=== PATIENT | male | born 1945 | race Hispanic/Latino ===

== ENCOUNTER 2016-05-14 08:26 | Inpatient (IN) | payer MEDICARE ==
--- NOTE | 2016-05-01 13:00 | NUR ---
JOINT CAMP: Patient attended Joint Camp at [facility]. Patient will be coming in for a right knee replacement. Patient comes from home and has three stairs to enter the home and none inside. Patient's Antonieta will be the one to help post discharge and she will be transporting patient home. [place], has never had home health or SNF or outpatient therapy. Patient has bath bench,elevated toilet and walker.
[2016-05-14] VITALS (13 sets, daily range): BP systolic 103–162; BP diastolic 64–94; PULSE 60–85; RESP 12–17; O2SAT 93–100
[~2016-05-14] VITALS: Ht 172.7 cm; Wt 87.4 kg
--- NOTE | 2016-05-14 06:39 | PCM.HPANE ---
Patient Data Surgeon Admitting Provider: Attending Provider:Obed Ba MD Primary Care Physician:Ivan Eugene MD Other Provider: Reason for Visit Right Knee Arthritis RIGHT KNEE ARTHRITIS Ht/WT & BMI Height (Feet): 5 Height (Inches): 8 Weight (Kilograms): 91.989 Body Mass Index 30.00 Allergies Coded Allergies: clindamycin (Verified Allergy, Severe, RASH, 05/08/16) Past Anesthesia History Anesthesia History: Denies:: Anesthesia Reactions, Malignant Hyperthermia Diabetes History Hx Diabetes?: No MRSA MRSA: No Medications Hypertension Medication: Yes (LISINOPRIL) Reported Medications Albuterol HFA (Proair HFA)8.5 Gm Hfa.aer.ad2 Puffs IN PRN 05/14/16 Lisinopril 40 Mg [id number] Mg PO DAILY 30 Days Ref 0 05/08/16 Discontinued Reported Medications Albuterol-Expunged Drug, Do Not Renew! 8.5 Gm Hfa.aer.ad2 Puffs IH Q3-4HP Take 2 puffs every 3-4 hours as needed 05/26/10 Simvastatin-Expunged Drug, Choose New Med! 40 Mg [id number] Mg PO HS 05/26/10 Beclomethasone-Expunged Drug, Do Not Renew! (Vzjs-71-[id number] Drug, Do Not Renew !)80 Mcg Puff80 Mcg INH BID 05/26/10 Finasteride-Expunged Drug, Do Not Renew! (Proscar-Expunged Drug, Do Not Renew!) 5 Mg Tablet5 Mg PO DAILY 05/26/10 Lisinopril-Expunged Drug, Do Not Renew! 20 Mg [id number] Mg PO AM 05/26/10 History History of ENT Problems?: No Hx of Heart Problems?: Yes Cardiovascular History: Positive for:: Hypertension (HYPERLIPIDEMIA) Denies:: Heart Murmur Valvular Heart Disease Hx of Respiratory Problem?: Yes Respiratory History: Positive for:: Asthma (EXASCERBATED BY STRESS) Use of Inhalers / NEBS Denies:: COPD Chest Surgery Dyspnea Emphysema Oxygen Administration Pneumonia Pulmonary Embolism Use of C-PAP Machine Hx Neurologic Problems?: No Hx of GI Problems?: Yes Hx of Problems?: No Male Hx: Positive for:: Prostate Problems (HX BPH S/P BX X3,SIMPLE RETROPUBIC PROSTATECTOMY) Denies:: Scrotal Mass Testicular Surgery Skin History: Denies:: History Skin Disorders? Pressure Ulcers Hx Musculoskeletal Problems?: Yes Musculoskeletal History: Positive for:: Degenerative Joint Musculoskeletal Trauma (S/P RT KNEE SCOPE X2) Osteoarthritis (RT KNEE=CURRENT PROBLEM) Hx of Psycho/Social Problems?: No Hx Surgeries?: Yes (RT KNEE SCOPES X2,SIMPLE RETROPUBIC PROSTATECTOMY) Hx Any Other Health Problems?: Yes Other History: Denies:: Cancer Endocrine Disease Hospitalization Thyroid Disease History Blood Transfusions: Denies:: Blood Transfusions Hx Diabetes: No Hx Alcohol Use: Yes (RARE)Hx Substance Use: NoHave You Smoked inLast 12 mo: No Stop/Bang S-Snoring: Do You Snore Loudly: No T-Tired: feel tired, fatigued: No O-Obsered: Observed not breath: No P-Blood Pressure: treated: Yes B- Body Mass Index > 35 kg/m2: No A- Age over 50: Yes N- Neck Large Circumference: No G- Gender Male: Yes ESTEPHANIA Total Score: 3 ESTEPHANIA Risk Assessment: Low Risk, <3 Yes Risk Assessment Category Category 1A: Patient has history of documented sleep apnea, and HAS NOT received any narcotic, sedative or anesthesia administration during this stay. Category 1B: Patient has history of documented sleep apnea, and HAS received any narcotic , sedative or anesthesia administration during this stay Category 2: Patient has SUSPECTED Obstructive Sleep Apnea, and HAS received any narcotic , sedative or anesthesia administration during this stay. Category 3: Patient has SUSPECTED Obstructive Sleep Apnea and HAS NOT received narcotic, sedative or anesthesia administration during this stay. Category 4: Outpatient in Procedural Areas with known sleep apnea or who screen positive for High Risk via the STOP/BANG questionnaire. Exam Exam General Appearance: Alert, Oriented X3, Cooperative, No Acute Distress HEENT/AIRWAY: MP 2 Lungs: Clear to Auscultation, Normal Air Movement Heart: Exam Unremarkable, Regular Rate/Rhythm, No Murmurs/Rubs/Gallops Plan Impression Patient chart reviewed, patient interviewed and anesthestic plan with risks, benefits, and alternatives discussed, and informed consent obtained. NPO Status: 1600 05/28/10 ASA Physical Status: ASA2 Mod Systemic Disease Anesthetic Plan: Regional Block, SAB Bene/Risks/Altern/Consents: Yes HP Complete Prior to Induction: Yes Jayson Harrington MD May 14, 2016 06:39
[~2016-05-14 08:26] MED LIST: ALBU8.5H4 IH; Bupivacaine Liposome 1.3% 20 mL Inj INFILTRATE SCH; CeFAZolin Inj 2 GM in IV Premix 1 EACH IV ONE; LISI40TA PO; Lactated Ringer's 1,000 ML IV ONE; SMV40T PO; Vancomycin Inj 1,500 MG in 0.9% Sodium Chloride 500 ML IV ONE
[2016-05-14] MEDS ORDERED: ALBU8.5H2 IN (08:45)
[2016-05-14] MEDS ORDERED: Propofol 10,000 mCg/mL 20 mL Inj ONE (09:36)
[2016-05-14] MEDS ORDERED: Lactated Ringer's 1,000 ML IV SCH ×2 (12:03→15:30)
[2016-05-14] MEDS ORDERED: Lactated Ringer's 500 ML IV PRN (12:03)
[2016-05-14] MEDS ORDERED: Phenylephrine 10,000 mCg/mL Inj IVPUSH PRN (12:05)
[2016-05-14] MEDS ORDERED: Atropine 0.4 mg/mL Inj IVPUSH PRN (12:05)
[2016-05-14] MEDS ORDERED: EPHEDrine Sulfate 50 mg/mL Inj IVPUSH PRN (12:05)
[2016-05-14] MEDS ORDERED: hydrALAZINE 20 mg/mL Inj IVPUSH PRN (12:05)
[2016-05-14] MEDS ORDERED: Ondansetron 2 mg/mL 2 mL Inj IVPUSH PRN (12:05)
[2016-05-14] MEDS ORDERED: fentaNYL-PF 50 mCg/mL 2 mL Inj IVPUSH PRN (12:05)
[2016-05-14] MEDS ORDERED: Labetalol 5 mg/mL 4 mL Inj IV PRN (12:05)
[2016-05-14] MEDS ORDERED: MetoCLOpramide 5 mg/mL 2 mL Inj IVPUSH PRN (12:05)
[2016-05-14] MEDS ORDERED: HYDROmorphone 1 mg/mL Inj IVPUSH PRN (12:05)
[2016-05-14] MEDS ORDERED: Dexamethasone 4 mg/mL Inj IVPUSH PRN (12:05)
[2016-05-14] MEDS ORDERED: Gentamicin 40 mg/mL 2 mL Inj IRRIGATION ONE (12:33)
[2016-05-14] MEDS ORDERED: Bupivacaine-MPF 0.25%/EPI 30 mL Inj INFILTRATE ONE (12:33)
[2016-05-14] MEDS ORDERED: Bupivacaine Liposome 1.3% 20 mL Inj INFILTRATE ONE (12:33)
[2016-05-14] MEDS ORDERED: fentaNYL-PF 50 mCg/mL 2 mL Inj ONE (14:28)
[2016-05-14 14:34] LABS: APPEARANCE,URINE HAZY (CLEAR,HAZY); COLOR,URINE STRAW (YELLOW); OCCULT BLOOD,URINE LARGE (NEGATIVE); PH,URINE 7.5 (5.0-8.0); UROBILINOGEN,URINE NORMAL (NORMAL)
--- NOTE | 2016-05-14 14:56 | DRSVH ---
PROCEDURE: X-RAY RIGHT KNEE, ONE OR TWO VIEWS ([id number]) INDICATIONS: POST PROTHESIS ALIGNMENT TECHNIQUE: 2 view(s) of the knee acquired. COMPARISON: None. FINDINGS: Bones: Patient is status post knee joint arthroplasty. Hardware components are in expected position s. Visualized bony structures are intact. Soft tissues: Overlying postoperative changes are noted. IMPRESSION: Expected appearance status post right TKA. Dictated by: Vishal Martinez RR Interpreted: Little Mckeon MD on 05/14/2016 at 14:55 Transcribed by: JULIO CÉSAR on 05/14/2016 at 14:55 Approved by: Little Mckeon MD, PhD on 05/14/2016 at 17:01
[2016-05-14] MEDS ORDERED: Ondansetron 2 mg/mL 2 mL Inj IV PRN (15:30)
[2016-05-14] MEDS ORDERED: MetoCLOpramide 5 mg/mL 2 mL Inj IV PRN (15:30)
[2016-05-14] MEDS ORDERED: Alum-Mag Hydrox-Simeth 30 mL Suspension PO PRN (15:30)
[2016-05-14] MEDS ORDERED: Vancomycin 1,000 mg/200 mL NS IV ONE ×2 (15:30→23:00)
[2016-05-14] MEDS ORDERED: diphenhydrAMINE 25 mg Capsule PO PRN (15:30)
[2016-05-14] MEDS ORDERED: HYDROcodone-APAP 5-325 mg Tablet PO PRN (15:30)
[2016-05-14] MEDS ORDERED: Magnesium Hydroxide 10 mL Oral Concentration PO PRN (15:30)
[2016-05-14] MEDS ORDERED: LORazepam 0.5 mg Tablet PO PRN (15:30)
[2016-05-14] MEDS ORDERED: Sodium Biphos-Phos 133 mL Enema RECTAL PRN (15:30)
[2016-05-14] MEDS ORDERED: Ondansetron 8 mg ODT Tablet PO PRN (15:30)
[2016-05-14] MEDS ORDERED: Albuterol 2.5 mg/3 mL Inhalation Solution NEB PRN (15:30)
[2016-05-14] MEDS ORDERED: CeFAZolin Inj 2 GM in IV Premix 1 EACH IV SCH (15:40)
[2016-05-14] MEDS ORDERED: hydrOXYzine Inj 25 MG/1 mL SDV IM PRN (15:40)
--- NOTE | 2016-05-14 15:42 | PCM.ANEP1 ---
Post Anesthesia Phase 1 PACU Phase 1 Assessment Vital Signs Vital Signs Date Time Temp Pulse Resp B/P Pulse Ox O2 Delivery O2 Flow Rate FiO2 05/14/16 15:22 36.1 60 16 148/94 100 Room Air 05/14/16 14:59 62 13 125/74 100 Room Air 05/14/16 14:48 15 100 05/14/16 14:45 36.3 63 14 125/71 98 Room Air 05/14/16 14:35 61 14 112/65 97 Room Air 05/14/16 14:20 62 12 111/65 97 Room Air 05/14/16 14:15 64 13 107/64 98 Room Air 05/14/16 14:10 65 14 103/65 96 Room Air 05/14/16 14:05 66 14 108/67 95 Room Air 05/14/16 14:05 13 94 05/14/16 14:00 36.3 66 15 116/64 95 Room Air 05/14/16 08:54 36.4 85 17 162/87 93 Room Air Anesthetic Administered: SAB Level of Alertness: Awake, talking ALEX's with Equal Strength: No (block in place) Pain: No Nausea or Vomiting: No Lungs: Clear to Auscultation, Normal Air Movement Dermatome Level: L1,2 (Groin) Jayson Harrington MD May 14, 2016 15:42
[2016-05-14] MEDS: Sodium Chloride LOK Flush 10 mL Syringe IV SCH (15:43)
--- NOTE | 2016-05-14 15:43 | PCM.ANEP2 ---
Post Anesthesia Evaluation ASA/CMS Post Anesthesia VS in Patient's Normal Range?: Yes Resp Stable; Airway Patent?: Yes CV Function & Hydration Stable: Yes Mental Status Recovered?: Yes Pain control Satisfactory?: Yes N/V Control Satisfactory?: Yes Jayson Harrington MD May 14, 2016 15:43
--- NOTE | 2016-05-14 15:46 | NUR ---
Post op Pt arrived on [facility] at 1510 in bed, Hemovac clamped, Joseph draining clear luis urine. no complains of pain or nausea. Alec wrap to right leg C/D/I with Ice on it. See post op assessment, care continued.
[2016-05-14] MEDS: oxyCODONE-Acetamin 5-325 mg Tablet PO PRN (17:57)
--- NOTE | 2016-05-14 18:07 | CONS ---
[address] [address] CONSULTATION REPORT PATIENT: LUCÍA DANIELS : 1945 MR#: [id number] ADMIT: 05/14/2016 JOB ID: [id number] DATE OF SERVICE: 05/14/2016 REQUESTING PHYSICIAN: Obed Ba MD REASON FOR REQUEST: Inability to place a preoperative urinary catheter. HISTORY: The patient is a 70-year-old, -[place]aur[place] male, who presents today to undergo a knee replacement by Dr. Obed Ba. Nursing staff was unable to pass a urinary drainage catheter x2. I was summoned to the OR for assistance. He is status post simple open prostatectomy on May 29, 2010 by me. He had no postoperative complications or issues. He currently has an indwelling spinal and is entirely awake and on questioning he denies any issues with his urinary flow. Allergies, past medical history, social, family and review of systems are reviewed and unchanged as per admitting H and P. by Dr. Ba. EXAMINATION: He is resting comfortably in supine, having had a spinal anesthetic. Abdomen is scaphoid and soft. Well-healed midline infraumbilical incision. External genitalia: Uncircumcised male. He does have hypopigmentation changes of the glans and a portion of the internal prepuce. Meatus is patent. Scrotum: Well-developed testes descended bilaterally. PROCEDURE: The genitalia were prepped and draped in sterile fashion and an 18-Vietnamese coude tip catheter was advanced to the lower urinary tract. An obstruction was met at the level of the bladder neck. No further attempts were made. The patient was then prepped and equipment was prepared for intraoperative flexible cystoscopy.
[2016-05-14] MEDS: CeFAZolin Inj 2 GM in IV Premix 1 EACH IV SCH (19:46)
[2016-05-14] MEDS: Ketorolac 15 mg/mL Inj IV SCH (19:55)
--- NOTE | 2016-05-14 23:12 | OP ---
[address] [address] OPERATIVE REPORT PATIENT: LUCÍA DANIELS : 1945 MR#: [id number] ADMIT: 05/14/2016 JOB ID: [id number] DATE OF SURGERY: PREOPERATIVE DIAGNOSIS(ES): 1. Urinary retention. 2. Inability to pass urinary drainage catheter. POSTOPERATIVE DIAGNOSIS(ES): 1. Urinary retention. 2. Inability to pass urinary drainage catheter. 3. Bladder neck contracture. PROCEDURE PERFORMED: 1. Cystoscopy, dilation of bladder neck contracture. 2. Complicated catheter placement. SURGEON: Daniel Rollins MD. ANESTHESIOLOGIST: Jayson Harrington MD. ANESTHESIA: Spinal and 1% lidocaine jelly. PROCEDURE SUMMARY: The patient was prepped and draped in sterile fashion. Using sterile technique, the 15-Tunisian flexible cystoscope was then advanced to the lower urinary tract with findings of a normal urethra, intact external sphincter, prostate status post resection. There was a relatively fixed circular 16-Tunisian bladder neck contracture. Under direct visualization, a 0.35 guidewire was advanced under direct visualization. The flexible endoscope was then backloaded off the wire. The serpentine urethral dilators were then used to dilate the bladder neck to 20-Tunisian. Over the wire, an 18-Tunisian [place] Tip catheter was advanced. The balloon inflated to 10 cc. A specimen was obtained for culture and the catheter was placed to gravity drainage. Dr. Ba will then proceed with his portion of the planned operation, details of which can be found in his OP report.
--- NOTE | 2016-05-14 23:43 | OP ---
[address] [address] OPERATIVE REPORT PATIENT: LUCÍA ADNIELS : 1945 MR#: [id number] ADMIT: 05/14/2016 JOB ID: [id number] DATE OF SURGERY: PREOPERATIVE DIAGNOSIS(ES): Severe arthritis, right knee. POSTOPERATIVE DIAGNOSIS(ES): Severe arthritis, right knee. PROCEDURE: Total knee replacement. SURGEON: Obed Ba MD. LOGISTICS/SHIPPER: Delia Rivero PA-C. Solar Installer Technician required due to the major complexity of operation. INDICATIONS: Severe progressive disability, symptoms uncontrolled by conservative treatment, in a gentleman who wishes to proceed with a total knee replacement. He understands and accepts the potential for risks and complications, which includes, but is not limited to, infection, thromboembolic, neurovascular events, as well as potential for implant failure. PROCEDURE: The patient was prepped and draped in usual sterile fashion. An anteromedial approach was made to the knee. We used his previous incisional area. Dissection was carried down. Our osteophytes were removed. The patella was subluxed laterally, cut transversely and sized to a 35. Drill holes were made. Drill hole was placed in the distal femur and a 5 degree valgus distal femoral cut was made. The tibia was cut with the extramedullary tool. A deep erosion on the medial side was encountered. The tibial cut was carried just to that level. Bone fragment was removed. This was sized to a G tibial component. The rotation tool was utilized on the femur, it was sized to an 11 with 11 chamfer block fixed, appropriate position and rotation. Drill holes and chamfer cuts were made. The tibia was fixed in appropriate rotation. Trial reduction performed. A 10 mm polyethylene produced excellent flexion-extension balance profile. Tibial preparation ensued in usual fashion. All meniscal tissue and osteophyte was removed. Pressurized lavage was followed by pressurized cementation of the components. Excess cement was removed during the curing process. The final construct was assembled. Tourniquet was let down. Hemostasis was achieved. The wounds were irrigated with a dilute Betadine solution. Deep closure with #2 Quill, followed by 2-0 Vicryl, 3-0 and a 4-0 intracuticular stitch. Steri-Strips and a sterile dressing applied. Standard postoperative management recommended.
[2016-05-15] VITALS: BP 146/78; PULSE 84; RESP 18; O2SAT 99
[2016-05-15] MEDS: Sodium Chloride LOK Flush 10 mL Syringe IV SCH ×3 (00:01→16:30)
[2016-05-15] MEDS: Ketorolac 15 mg/mL Inj IV SCH ×2 (02:30→08:38)
[2016-05-15] MEDS: oxyCODONE-Acetamin 5-325 mg Tablet PO PRN ×5 (02:34→20:38)
[2016-05-15] MEDS: hydrOXYzine Pamoate 25 mg Capsule PO PRN ×4 (02:34→20:38)
--- NOTE | 2016-05-15 02:52 | NUR ---
neuro/pain: pt. appears confused talking into the telephone, stating "call light has been on for an hour.", actually the call light has been on for less than 5min. pt. shaking stating he was in a lot of pain, I gave him the pain meds he requested one percocet and vistaril and apologized. pt. states he told BIOSTATISTICS TEACHER to ask me for pain meds 2 hrs ago , I did not receive that message, I was in pt's room at midnight and he stated "he was comfortable and didn't have pain at that time." will reassess, pt. is keeping a log book at bedside. Addendum: 05/15/16 at 0326 by ABBY MIRAMONTES RN pt. states "I am doing much better right now, thank you"
[2016-05-15] MEDS: CeFAZolin Inj 2 GM in IV Premix 1 EACH IV SCH (03:04)
[2016-05-15 05:03] VITALS: BP 108/58; PULSE 60; RESP 16; O2SAT 96
[2016-05-15 06:37] LABS: BASOPHILS % (AUTO) 0.2 % (0-3); EOSINOPHILS % (AUTO) 0.5 % (0-5); MONOCYTES % (AUTO) 9.3 % (4-12); Mean Corpuscular Hemoglobin 30.2 pg (27.0-35.0); NEUTROPHILS % (AUTO) 70.6 % (40-74); Platelet Count 190 bil/L (150-400)
[2016-05-15] MEDS: Lisinopril 40 Tablet PO SCH (08:38)
--- NOTE | 2016-05-15 10:48 | PCM.PNORTH ---
Subjective Date of Service: May 15, 2016 Visit Information: Reason for Visit Right Knee Arthritis Surgery/Surgery Date R TKA 05/14/16 Post-Op Day # 1 Date of Admission: May 14, 2016 at 14:27 Hospital Day # Subjective Patient states he had a sudden onset of pain this morning around 1am. He states since then his pain has been controlled. He states he has just completed his morning physical therapy. He has no concerns at this time. Postop General: No Complaints, No Shortness of Breath, No Chest Pain, Good Appetite Pain Management: PO Objective Exam Objective Patient sitting up in bed Vital Signs and I/O Vital Sign - Last Date Time Temp Pulse Resp B/P Pulse Ox O2 Delivery O2 Flow Rate FiO2 05/15/16 05:03 36.8 60 16 108/58 96 Room Air Intake and Output 05/14/16 05/14/16 05/15/16 Cumulative From/Thru 15:00 23:00 07:00 05/08/16 17:27 - 05/15/16 06:47 Intake Total 2170 ml 233 ml 1614 ml 4017 ml Output Total 190 ml 50 ml 465 ml 705 ml Balance 1980 ml 183 ml 1149 ml 3312 ml Intake Oral 233 ml 700 ml 933 ml IV Total 2170 ml 914 ml 3084 ml Output Urine Total 140 ml 50 ml 400 ml 590 ml Drainage Total 0 ml 65 ml 65 ml Estimated Blood Loss 50 ml 50 ml Lab & Micro Results Laboratory Tests Test 05/14/16 14:16 05/15/16 06:00 Urine Color Straw (YELLOW) Urine Appearance Hazy (CLEAR,HAZY) Urine pH 7.5 (5.0-8.0) Urine Specific [place] 1.020 (1.003-1.035) Urine Protein Negativemg/dL (NEG,TRACE) Urine Glucose (UA) Negativemg/dL (NEGATIVE) Urine Ketones Negativemg/dL (NEGATIVE) Urine Occult Blood Large (NEGATIVE) Urine Nitrite Negative (NEGATIVE) Urine Bilirubin Negative (NEGATIVE) Urine Urobilinogen Normalmg/dL (NORMAL) Urine Leukocyte Esterase Negative (NEGATIVE) Urine RBC >50/hpf (0-2) Urine WBC 0-5/hpf (0-5) Urine Epithelial Cells Occasional/hpf (NONE-MOD) Urine Crystals None seen (NONE SEEN) Urine Bacteria None/hpf (NONE-FEW) Urine Hyaline Casts None/lpf (NONE) Urine Granular Casts None seen (NONE SEEN) Urine Waxy Casts None seen (NONE SEEN) Urine Red Blood Cell Casts None seen (NONE SEEN) Urine White Blood Cell Casts None seen (NONE SEEN) Urine Mucus None seen (None Seen) Urine Trichomonas None seen (NONE SEEN) Urine Yeast None (NONE SEEN) Urinalysis Comment None Urine Culture Reflexed Not indicated White Blood Count 9.3th/mm3 (3.8-10.1) Red Blood Count 3.88mil/mm3 (4.40-5.80) Hemoglobin 11.7g/dL (13.8-17.2) Hematocrit 35.7% (41.0-50.0) Mean Corpuscular Volume 92.0fL (81-100) Mean Corpuscular Hemoglobin 30.2pg (27.0-35.0) Mean Corpuscular Hemoglobin Concent 32.8% (32.0-37.0) Red Cell Distribution Width 12.9% (12.3-15.4) Platelet Count 190bil/L (150-400) Neutrophils (%) (Auto) 70.6% (40-74) Lymphocytes (%) (Auto) 19.2% (14-46) Monocytes (%) (Auto) 9.3% (4-12) Eosinophils (%) (Auto) 0.5% (0-5) Basophils (%) (Auto) 0.2% (0-3) Result Diagram: 05/15/16 0600 General Appearance: Alert, Oriented X3, Cooperative, No Acute Distress Extremities: Distal Pulses Palpable, No Compartment Syndrom Noted Postop Sensory Motor: Distal Motor Intact, Movement in Toes, Distal Sensation Intact, NVI Distally SURGICAL WOUND : Wound Location/Description Perioperative dressings clean dry and intact Drain Location Body Site: Knee Wound Drainage Type: Hemovac Catheters: Urethral 2 Way Joseph Assessment & Plan Impression Postop day #1 right total knee arthroplasty. Problems: Plan Overnight Hemovac output was 65 Weightbearing: Weightbearing as tolerated with walker DVT prophylaxis: 81 mg twice a day 6 weeks Physical therapy for transfers, progressive ambulation, strengthening Wound care: Perioperative dressing will be changed to an island dressing tomorrow Analgesia: Continue oral pain management Discharge plan: Discharge home in 1-2 days. Start outpatient physical therapy next week. Patient is still waiting to hear back from [employer] about his PT prior authorization. I contacted out office to look into it. Follow-up plan: In 2 weeks at [facility] with ITALIA for wound check and at [address] Ba with x-rays VTE Prophylaxis: Other (aspirin 81 mg twice a day 6 weeks) Delia Rivero PA-C May 15, 2016 10:48
--- NOTE | 2016-05-15 10:57 | PCM.PNORTH ---
Subjective Date of Service: May 15, 2016 Visit Information: Reason for Visit Right Knee Arthritis Surgery/Surgery Date R TKA 05/14/16 Post-Op Day # 1 Date of Admission: May 14, 2016 at 14:27 Hospital Day # Subjective Patient states she is having some discomfort in the front of her knee. Patient states this morning she was able start feeling her leg and toes. She states she had physical therapy yesterday in which she experienced a lot of buckling in her knee however today when she did physical therapy she was able to hold herself up and no buckling. No concerns. Postop General: No Complaints, No Shortness of Breath, No Chest Pain, Good Appetite Pain Management: PO Objective Exam Objective Sitting up in bed Vital Signs and I/O Vital Sign - Last Date Time Temp Pulse Resp B/P Pulse Ox O2 Delivery O2 Flow Rate FiO2 05/15/16 05:03 36.8 60 16 108/58 96 Room Air Intake and Output 05/14/16 05/14/16 05/15/16 Cumulative From/Thru 15:00 23:00 07:00 05/08/16 17:27 - 05/15/16 06:47 Intake Total 2170 ml 233 ml 1614 ml 4017 ml Output Total 190 ml 50 ml 465 ml 705 ml Balance 1980 ml 183 ml 1149 ml 3312 ml Intake Oral 233 ml 700 ml 933 ml IV Total 2170 ml 914 ml 3084 ml Output Urine Total 140 ml 50 ml 400 ml 590 ml Drainage Total 0 ml 65 ml 65 ml Estimated Blood Loss 50 ml 50 ml Lab & Micro Results Laboratory Tests Test 05/14/16 14:16 05/15/16 06:00 Urine Color Straw (YELLOW) Urine Appearance Hazy (CLEAR,HAZY) Urine pH 7.5 (5.0-8.0) Urine Specific [place] 1.020 (1.003-1.035) Urine Protein Negativemg/dL (NEG,TRACE) Urine Glucose (UA) Negativemg/dL (NEGATIVE) Urine Ketones Negativemg/dL (NEGATIVE) Urine Occult Blood Large (NEGATIVE) Urine Nitrite Negative (NEGATIVE) Urine Bilirubin Negative (NEGATIVE) Urine Urobilinogen Normalmg/dL (NORMAL) Urine Leukocyte Esterase Negative (NEGATIVE) Urine RBC >50/hpf (0-2) Urine WBC 0-5/hpf (0-5) Urine Epithelial Cells Occasional/hpf (NONE-MOD) Urine Crystals None seen (NONE SEEN) Urine Bacteria None/hpf (NONE-FEW) Urine Hyaline Casts None/lpf (NONE) Urine Granular Casts None seen (NONE SEEN) Urine Waxy Casts None seen (NONE SEEN) Urine Red Blood Cell Casts None seen (NONE SEEN) Urine White Blood Cell Casts None seen (NONE SEEN) Urine Mucus None seen (None Seen) Urine Trichomonas None seen (NONE SEEN) Urine Yeast None (NONE SEEN) Urinalysis Comment None Urine Culture Reflexed Not indicated White Blood Count 9.3th/mm3 (3.8-10.1) Red Blood Count 3.88mil/mm3 (4.40-5.80) Hemoglobin 11.7g/dL (13.8-17.2) Hematocrit 35.7% (41.0-50.0) Mean Corpuscular Volume 92.0fL (81-100) Mean Corpuscular Hemoglobin 30.2pg (27.0-35.0) Mean Corpuscular Hemoglobin Concent 32.8% (32.0-37.0) Red Cell Distribution Width 12.9% (12.3-15.4) Platelet Count 190bil/L (150-400) Neutrophils (%) (Auto) 70.6% (40-74) Lymphocytes (%) (Auto) 19.2% (14-46) Monocytes (%) (Auto) 9.3% (4-12) Eosinophils (%) (Auto) 0.5% (0-5) Basophils (%) (Auto) 0.2% (0-3) Result Diagram: 05/15/16 0600 General Appearance: Alert, Oriented X3, Cooperative, No Acute Distress Extremities: Distal Pulses Palpable, No Compartment Syndrom Noted, Thigh & Calf Soft/Nontender Postop Sensory Motor: Distal Motor Intact, Movement in Toes, Distal Sensation Intact, NVI Distally SURGICAL WOUND : Drain Location Body Site: Knee Wound Drainage Type: Hemovac Catheters: Urethral 2 Way Joseph Assessment & Plan Impression POD #1 right patellofemoral joint arthroplasty Problems: Plan Overnight hemovac output is 105. Weightbearing: Weightbearing as tolerated with a front-wheeled walker DVT prophylaxis: For an 81 mg twice a day 6 weeks Physical therapy for transfers, progressive ambulation, strengthening Wound care: Perioperative dressings will be changed to an island dressing tomorrow by patient. Please send patient home with an island dressing. Analgesia: Oral pain management including Percocet and Vistaril. Discharge plan: Discharge home today after afternoon physical therapy. Start outpatient physical therapy within one week. Follow-up plan: In 2 weeks at [facility] with PA for wound check and at [address] Ba with x-rays VTE Prophylaxis: Other (aspirin 81 mg twice a day 6 weeks) Delia Rivero PA-C May 15, 2016 10:57
[2016-05-15 14:10] VITALS: BP 132/74; PULSE 71; RESP 18; O2SAT 96
--- NOTE | 2016-05-15 19:49 | NUR ---
Arthur/Hemovac Hemovac dc'd at 1630. Pressure applied d/t oozing post removal with 2x2 and tegaderm. Once no active bleeding. MASHA rewrapped and this RN visualized site and changed dressing prior to change of shift. ISABEL RN aware. Call to Dr. Rollins re: arthur removal at 1300. Dr. Ba deferred to Ayo. Per Ayo - not to take out this late in the day, instructed to have removed in earlt AM. ISABEL Oneal aware. Carecontinues.
[2016-05-15 20:30] VITALS: BP 138/79; PULSE 75; RESP 20; O2SAT 96
[2016-05-16 00:44] VITALS: BP 147/89; PULSE 79; RESP 20; O2SAT 94
[2016-05-16] MEDS: oxyCODONE-Acetamin 5-325 mg Tablet PO PRN ×4 (00:55→12:16)
[2016-05-16] MEDS: hydrOXYzine Pamoate 25 mg Capsule PO PRN ×4 (00:55→12:15)
[2016-05-16] MEDS: Sodium Chloride LOK Flush 10 mL Syringe IV SCH ×2 (00:56→08:45)
--- NOTE | 2016-05-16 01:36 | NUR ---
temp/pain Patient temperature climbing, despite q3h Percocet, now at 37.9. MD made aware, will continue to monitor. Denies CP, SOB, abdominal discomfort. Lungs CTA at this time.
[2016-05-16 04:57] VITALS: BP 169/90; PULSE 81; RESP 20; O2SAT 97
[2016-05-16] MEDS: Lisinopril 40 Tablet PO SCH (08:43)
--- NOTE | 2016-05-16 10:34 | PCM.PNORTH ---
Subjective Date of Service: May 16, 2016 Visit Information: Reason for Visit Right Knee Arthritis Surgery/Surgery Date R TKA 05/14/16 Post-Op Day # Date of Admission: May 14, 2016 at 14:27 Hospital Day # Subjective Patient is found sitting up in a chair beside his bed with in attendance. No complaints at this time. Discussed discharge today on postoperative day 2 and patient is in favor of this. Patient's will be at home to help him and he has only 2 stairs to enter his home. He has undergone stair training this morning and passed this with physical therapy. Patient is working on his outpatient physical therapy authorization and as of this date does not have his therapy secured yet. I have discussed with him that he should work diligently on this while here at the hospital and again when he gets home to ensure that he starts physical therapy within approximately 1 week of discharge. I will also encourage patient to perform gentle active range of motion at the knee and pursue gait as tolerated about his home until he enters physical therapy. Postop General: No Complaints, No Shortness of Breath, No Chest Pain, Good Appetite Pain Management: PO Objective Exam Objective Orientation: Alert and oriented 3 and pleasant. Dressing: Interoperative dressing is clean dry and intact. Dressing is changed to postop dressing with ABDs and fishnet. Wound: Wound is in good condition with no drainage and Steri-Strips are in place. Compartments: Calf and thigh are soft and nontender Mobility/sensation: Toe wiggle and sensation are intact in right lower extremity distally Abduction wedge: None ART hose: None. Bilateral thigh-high ART hose are ordered for patient today. Joseph: None Wound VAC: None Drain: None Gait: 8100 feet with physical therapy on 05/15/2016. Gait times ? with stair training this morning on 05/16/2016 with physical therapy. Vital Signs and I/O Vital Sign - Last Date Time Temp Pulse Resp B/P Pulse Ox O2 Delivery O2 Flow Rate FiO2 05/16/16 04:57 37.7 81 20 169/90 97 Room Air Intake and Output 05/15/16 05/15/16 05/16/16 Cumulative From/Thru 15:00 23:00 07:00 05/08/16 17:27 - 05/15/16 19:23 Intake Total 538 ml 1625 ml 6180 ml Output Total 1050 ml 1755 ml Balance 538 ml 575 ml 4425 ml Intake Oral 1625 ml 2558 ml IV Total 538 ml 3622 ml Output Urine Total 1050 ml 1640 ml Drainage Total 65 ml Estimated Blood Loss 50 ml # Bowel Movements 0 0 Result Diagram: 05/15/16 0600 General Appearance: Alert, Oriented X3, Cooperative, No Acute Distress Extremities: No Compartment Syndrom Noted, Thigh & Calf Soft/Nontender Postop Sensory Motor: Distal Motor Intact, Movement in Toes, Distal Sensation Intact SURGICAL WOUND : Drain Location Body Site: Knee Wound Drainage Type: Hemovac Activity: Activity per PT, Ambulate with PT (weightbearing as tolerated on the right lower extremity using frontwheel walker.) Catheters: None Assessment & Plan Impression Patient is a 70-year-old male who is undergone a right total knee arthroplasty on 05/14/2016. He has participated well with formal physical therapy and is cleared for discharge to home with a front-wheeled walker and outpatient physical therapy. Problems: Plan Postop day # 2 from right total knee arthroplasty performed on 05/14/[address] Obed Ba. Weight bearing status: Weightbearing as tolerated at the right lower extremity Mobility aid: Front-wheeled walker Immobilization: None Precautions: Standard postoperative precautions for fall risk. Physical therapy: Continue formal physical therapy for mobility, gait and safety. Outpatient physical therapy is being arranged at this time. Pain control: Continue by mouth pain control in the form of Percocet 5/325. DVT prophylaxis: Continue ASA 81mg EC by mouth twice a day 6 weeks postop for DVT prophylaxis. Wound care: Keep wound clean dry and covered until seen in office in 2 weeks. Infectious DZ: None Joseph: None Dressing: Interoperative dressing is changed to postop dressing this morning with ABD and fishnet. Additional ABDs and fishnet are given to patient this morning for use at home. Drain: None Abduction wedge: None ART hose: None. Bilateral thigh-high ART hose ordered this morning. Nursing communication: Nursing please fit patient with bilateral thigh-high ART hose prior to discharge. 2-week follow-up: Follow-up in [address] [facility] orthopedic clinic on prearranged appointment with mid-level provider for wound check and suture removal. 6-week follow-up: Follow-up in [address] [facility] orthopedic clinic with Dr. Obed Ba with right 2 view knee x-rays on arrival. Discharge plan: Discharged to home today with spouse's caregiver on postop day #2, 05/16/2016 after p.m. physical therapy session. VTE Prophylaxis: SCDs (SCD and left lower extremity), ART Hose (bilateral thigh -high ART hose), Other (aspirin 81 mg twice a day 6 weeks) Chandan Aguiar PA-C May 16, 2016 10:34
--- NOTE | 2016-05-16 10:37 | PCM.DIORTH ---
Ortho Discharge Instruction Date of Service: May 16, 2016 Dates of Hospitalization Date of Hospital Admission May 14, 2016 at 14:27 Providers Admitting Physician: Obed Ba MD Primary Care Physician: Ivan Eugene MD Attending Physician: Obed Ba MD Diet Discharge Diet: No restrictions Activity Discharge Activity-General: Try not to overdue, Be up and about, Balance rest and activity, Ice incision 3-5 time/day for 20min, Activity as pain allows, Activity as energy allows, No driving while taking narcotic Right Lower Extremity: Weight Bearing as tolerated Discharge Assist Device: Front Wheeled Walker Dressing and Incisional Care Discharge Dressing Care: Keep dressing clean, dry & intact, Change soiled dressing Discharge Hygiene: May shower (patient may shower but dressing and wound should be kept clean and dry until seen in office in 2 weeks.), DO NOT soak incision under water, NO bathtub, hot tub or whirlpool Additional Instructions Discharge Instructions Postop day # 2 from right total knee arthroplasty performed on 05/14/[address] Obed Ba. Weight bearing status: Weightbearing as tolerated at the right lower extremity Mobility aid: Front-wheeled walker Immobilization: None Precautions: Standard postoperative precautions for fall risk. Physical therapy: Continue formal physical therapy for mobility, gait and safety. Outpatient physical therapy is being arranged at this time. Pain control: Continue by mouth pain control in the form of Percocet 5/325. DVT prophylaxis: Continue ASA 325 mg EC by mouth twice a day 6 weeks postop for DVT prophylaxis. Wound care: Keep wound clean dry and covered until seen in office in 2 weeks. Infectious DZ: None Joseph: None Dressing: Interoperative dressing is changed to postop dressing this morning with ABD and fishnet. Additional ABDs and fishnet are given to patient this morning for use at home. Drain: None Abduction wedge: None ART hose: None. Bilateral thigh-high ART hose ordered this morning. Nursing communication: Nursing please fit patient with bilateral thigh-high ART hose prior to discharge. 2-week follow-up: Follow-up in [address] [facility] orthopedic clinic on prearranged appointment with mid-level provider for wound check and suture removal. 6-week follow-up: Follow-up in [address] [facility] orthopedic clinic with Dr. Obed Ba with right 2 view knee x-rays on arrival. Discharge plan: Discharged to home today with spouse's caregiver on postop day #2, 05/16/2016 after p.m. physical therapy session. Follow Up Plan Follow Up Plan Patient will be seen in 2 weeks, 6 weeks and 12 weeks postoperatively. Patient will be seen when necessary in the interim. Follow-up Provider (F9): Obed Ba MD Mid-level Provider (F9): Delia Rivero PA-C Follow-up appointment: Weeks (follow-up in 2 weeks at [facility] orthopedic clinic on prearranged appointment for wound check and suture removal.) Call your provider for: Fever, Chills, Shortness of breath, Vomitting, Drainage at incision Chandan Aguiar PA-C May 16, 2016 10:37
[2016-05-16] MEDS ORDERED: HYDR-3797 PO (10:42)
[2016-05-16] MEDS ORDERED: OXYC1TAB24 PO (10:42)
[2016-05-16] MEDS ORDERED: Aspirin-Expunged Drug, Do Not Renew! PO (10:42)
[2016-05-16] MEDS ORDERED: DOCU-41 PO (10:42)
--- NOTE | 2016-05-16 10:50 | PCM.DC.ORT ---
Discharge Summary Date of Service: May 16, 2016 Date of Hospital Admission: May 14, 2016 at 14:27 Date of Surgery: May 14, 2016 Date of Discharge: May 16, 2016 Reason for Hospitalization: Severe right knee osteoarthritis Procedures Performed: Right total knee arthroplasty Hospital Course: Patient was admitted through the preoperative care unit on 05/14/2016 upon processing was taken to the operating room where his procedure was performed without incident. Upon awakening patient was taken to the postoperative care unit and upon recovery from anesthesia he was transferred to the orthopedic care unit where he participated with physical therapy and received a recommendation for discharge to home. Patient was subsequently discharged home on 05/16/2016. Problems: (1) Osteoarthritis Status: Acute ICD Code: M19.90 Disposition: Discharged to home with spouse as carrying her on 05/16/2016. Orthopedic Follow up Plan: In Two Weeks in my clinic (follow-up in 2 weeks at [facility] orthopedic clinic on prearranged appointment with mid-level provider for wound check and suture removal.) Discharge Instructions: Postop day # 2 from right total knee arthroplasty performed on 05/14/[address] Obed Ba. Weight bearing status: Weightbearing as tolerated at the right lower extremity Mobility aid: Front-wheeled walker Immobilization: None Precautions: Standard postoperative precautions for fall risk. Physical therapy: Continue formal physical therapy for mobility, gait and safety. Outpatient physical therapy is being arranged at this time. Pain control: Continue by mouth pain control in the form of Percocet 5/325. DVT prophylaxis: Continue ASA 81mg EC by mouth twice a day 6 weeks postop for DVT prophylaxis. Wound care: Keep wound clean dry and covered until seen in office in 2 weeks. Infectious DZ: None Joseph: None Dressing: Interoperative dressing is changed to postop dressing this morning with ABD and fishnet. Additional ABDs and fishnet are given to patient this morning for use at home. Drain: None Abduction wedge: None ART hose: None. Bilateral thigh-high ART hose ordered this morning. Nursing communication: Nursing please fit patient with bilateral thigh-high ART hose prior to discharge. 2-week follow-up: Follow-up in 2 weeks S [facility] orthopedic clinic on prearranged appointment with mid-level provider for wound check and suture removal. 6-week follow-up: Follow-up in 6 weeks S [facility] orthopedic clinic with Dr. Obed Ba with right 2 view knee x-rays on arrival. Discharge plan: Discharged to home today with spouse's caregiver on postop day #2, 05/16/2016 after p.m. physical therapy session. Management Plan: Patient will be seen at 2 weeks, 6 weeks and 12 weeks postoperatively. Patient will be seen when necessary in the interim. ([Aspirin-Expunged Drug, Do Not Renew!]) 325 MG TABLET 81 MG PO BID Albuterol HFA (Proair HFA) 8.5 Gm Hfa.aer.ad 2 PUFFS IN PRN Docusate Sodium (Colace) 100 Mg Capsule 100 MG PO BID Hydroxyzine Pamoate (HydrOXYzine Pamoate) 25 Mg Capsule 25 MG PO Q4-6H PRN PRN For Restlessness Lisinopril (Lisinopril) 40 Mg Tablet 40 MG PO DAILY oxyCODONE-Acetaminophen 5-325 mg (oxyCODONE-Acetaminophen 5-325 mg) 1 Each Tablet 1-2 TAB PO Q4-6H PRN PRN For Severe Pain Chandan Aguiar PA-C May 16, 2016 10:50
--- NOTE | 2016-05-16 12:46 | NUR ---
Pain Patient experiences pain. Pain level was 4 from a 0-10 scale. Patient was given pain medication. Patient's pain level response has decreased.
--- NOTE | 2016-05-16 14:40 | NUR ---
Discharge Note Pt d/c home with his at 1440. IV d/c intact. Pt has thigh high TEDS at home and was going to put those on when he arrived home. Prescription given to pt. D/C orders stated to take 325mg ASA BID, but prescription said 81mg. Pt was receiving 325mg ASA BID at the hospital. Instructed to take 325mg BID. Care notes discussed with pt and . Home meds and prescription discussed. Pt left in stable condition with all his belonging.
[2016-07-12] MEDS ORDERED: ALBU8.5H2 INHALATION (10:37)
[2016-07-12] MEDS ORDERED: HYDR25CA PO (10:37)
[2016-07-12] MEDS ORDERED: SIMV40TA5 PO (10:37)
[2016-07-12] MEDS ORDERED: LISI40TA PO (10:37)
[2016-07-12] MEDS ORDERED: HYDR-4003 PO (10:37)
== END 2016-05-16 14:40 | disposition home or self-care (01) | DRG 470 ==
LOC: SAS 08:26 → OSC 14:27
PROVIDERS: ADMIT Orthopaedic Surgery; ATTEND Orthopaedic Surgery
PROC: 0T7B8ZZ Dilation of Bladder, Via Natural or Artificial Opening Endoscopic (ICD-10-PCS; 2016-05-14)
PROC: 0T9 Urinary System, Drainage (ICD-10-PCS; 2016-05-14)
PROC: 0SRC0J9 Replacement of Right Knee Joint with Synthetic Substitute, Cemented, Open Approach (ICD-10-PCS; principal; 2016-05-14 11:00)
DX: M17.11 Unilateral primary osteoarthritis, right knee (principal); N13.8 Other obstructive and reflux uropathy; I10 Essential (primary) hypertension; N40.1 Benign prostatic hyperplasia with lower urinary tract symptoms

== ENCOUNTER 2016-07-16 05:48 | Day surgery (SDC) | payer MEDICARE ==
[2016-07-16] VITALS (9 sets, daily range): BP systolic 122–177; BP diastolic 66–90; PULSE 60–76; RESP 12–27; O2SAT 95–98
[~2016-07-16] VITALS: Ht 172.7 cm; Wt 89.7 kg
[~2016-07-16 05:48] MED LIST changes: +ALBU8.5H2 INHALATION; -ALBU8.5H4 IH; -Bupivacaine Liposome 1.3% 20 mL Inj INFILTRATE SCH; -CeFAZolin Inj 2 GM in IV Premix 1 EACH IV ONE; +HYDR-4003 PO; +HYDR25CA PO; +SIMV40TA5 PO; -SMV40T PO; -Vancomycin Inj 1,500 MG in 0.9% Sodium Chloride 500 ML IV ONE
[2016-07-16] MEDS ORDERED: Propofol 10,000 mCg/mL 20 mL Inj ONE (05:49)
[2016-07-16] MEDS ORDERED: fentaNYL-PF 50 mCg/mL 2 mL Inj ONE (05:49)
--- NOTE | 2016-07-16 07:07 | PCM.HPANE ---
Patient Data Surgeon Admitting Provider: Attending Provider:Obed Ba MD Primary Care Physician:Ivan Eugene MD Other Provider:Marielena Gonzalezingham Anesthesia Reason for Visit S/P Right Knee Replacement Ht/WT & BMI Height (Feet): 5 Height (Inches): 8.00 Weight (Kilograms): 89.7 Body Mass Index 29.00 Allergies Coded Allergies: clindamycin (Verified Allergy, Severe, RASH, 05/08/16) Past Anesthesia History Anesthesia History: Denies:: Anesthesia Reactions, Malignant Hyperthermia Diabetes History Hx Diabetes?: No MRSA MRSA: No Medications Hypertension Medication: Yes Home Meds Incl Beta Mando: No Reported Medications Simvastatin 40 Mg [id number] Mg PO HS 30 Days Ref 0 07/12/16 Hydroxyzine Pamoate (Vistaril)25 Mg [id number] Mg PO 8xdaily Ref 0 07/12/16 Hydrocodone-Acetaminophen 5-325 mg 1 Each Tablet1 Tablet PO Q6H PRN For Pain Ref 0 07/12/16 Lisinopril 40 Mg [id number] Mg PO DAILY 30 Days Ref 0 07/12/16 Albuterol HFA (Proair HFA)8.5 Gm Hfa.aer.ad2 Puffs INHALATION Q4H PRN For Shortness of Breath #1 INHALER 07/12/16 Discontinued Reported Medications Albuterol HFA (Proair HFA)8.5 Gm Hfa.aer.ad2 Puffs IN PRN 05/14/16 Lisinopril 40 Mg [id number] Mg PO DAILY 30 Days Ref 0 05/08/16 Discontinued Scripts Docusate Sodium (Colace)100 Mg [id number] Mg PO BID constipation #15 CAPSULE Prov:Chandan Aguiar PA-C 05/16/16 oxyCODONE-Acetaminophen 5-325 mg 1 Each Tablet1-2 Tab PO Q4-6H PRN For Severe Pain #60 TABLET Prov:Chandan Aguiar PA-C 05/16/16 Hydroxyzine Pamoate (HydrOXYzine Pamoate)25 Mg [id number] Mg PO Q4-6H PRN For Restlessness #60 CAPSULE Prov:Chandan Aguiar PA-C 05/16/16 [Aspirin] 325 MG TABLET No Conflict Check81 Mg PO BID DVT prophylaxis #1 BOTTLE Prov:Chandan Aguiar PA-C 05/16/16 History History of ENT Problems?: No Hx of Heart Problems?: Yes Cardiovascular History: Positive for:: Hypertension Denies:: Heart Murmur Valvular Heart Disease Hx of Respiratory Problem?: Yes Respiratory History: Positive for:: Asthma Use of Inhalers / NEBS Denies:: COPD Chest Surgery Dyspnea Emphysema Oxygen Administration Pneumonia Pulmonary Embolism Use of C-PAP Machine Hx Neurologic Problems?: No Hx of GI Problems?: No Hx of Problems?: No Male Hx: Positive for:: Prostate Problems (hx of simple retropubic prostatectomy) Denies:: Scrotal Mass Testicular Surgery Skin History: Denies:: History Skin Disorders? Pressure Ulcers Hx Musculoskeletal Problems?: Yes Musculoskeletal History: Positive for:: Degenerative Joint Joint Replacement (right total knee) Musculoskeletal Trauma (right knee current admission problem, post total) Osteoarthritis Hx of Psycho/Social Problems?: No Hx Surgeries?: Yes (right total knee, simple prostatectomy) Hx Any Other Health Problems?: Yes Other History: Denies:: Cancer Endocrine Disease Hospitalization Thyroid Disease History Blood Transfusions: Denies:: Blood Transfusions Hx Diabetes: No Hx Alcohol Use: Yes (RARE)Hx Substance Use: No Smoking Status: Former Smoker Have You Smoked inLast 12 mo: No Stop/Bang S-Snoring: Do You Snore Loudly: No T-Tired: feel tired, fatigued: No O-Obsered: Observed not breath: No P-Blood Pressure: treated: Yes B- Body Mass Index > 35 kg/m2: No A- Age over 50: Yes N- Neck Large Circumference: No G- Gender Male: Yes ESTEPHANIA Total Score: 3 ESTEPHANIA Risk Assessment: Low Risk, <3 Yes Risk Assessment Category Category 1A: Patient has history of documented sleep apnea, and HAS NOT received any narcotic, sedative or anesthesia administration during this stay. Category 1B: Patient has history of documented sleep apnea, and HAS received any narcotic , sedative or anesthesia administration during this stay Category 2: Patient has SUSPECTED Obstructive Sleep Apnea, and HAS received any narcotic , sedative or anesthesia administration during this stay. Category 3: Patient has SUSPECTED Obstructive Sleep Apnea and HAS NOT received narcotic, sedative or anesthesia administration during this stay. Category 4: Outpatient in Procedural Areas with known sleep apnea or who screen positive for High Risk via the STOP/BANG questionnaire. Exam Exam Vital Signs Vital Signs Date Time Temp Pulse Resp B/P Pulse Ox O2 Delivery O2 Flow Rate FiO2 07/16/16 06:34 35.5 76 18 177/90 96 Room Air General Appearance: Alert, Oriented X3, Cooperative, No Acute Distress HEENT/AIRWAY: MP 1 Lungs: Normal Air Movement Heart: Exam Unremarkable Meds/Labs/Diagnostics Admission Meds Current Medications Lactated Ringer's (Lr) 1,000 ml @ 120 mls/hr Q8H20M ONCE IV Last administered on 07/16/16t 05:57; Start 07/16/16 at 05:00; Stop 07/16/16 at 13:19 Plan Impression Patient chart reviewed, patient interviewed and anesthestic plan with risks, benefits, and alternatives discussed, and informed consent obtained. NPO Status: 6pm ASA Physical Status: ASA2 Mod Systemic Disease Anesthetic Plan: GA Bene/Risks/Altern/Consents: Yes HP Complete Prior to Induction: Yes Edmond Matthews MD Jul 16, 2016 07:07
[2016-07-16] MEDS ORDERED: Bupivacaine-MPF 0.5% W/EPI 30 mL Inj INFILTRATE ONE ×2 (07:12→07:47)
[2016-07-16] MEDS ORDERED: Phenylephrine 10,000 mCg/mL Inj IVPUSH PRN (07:40)
[2016-07-16] MEDS ORDERED: EPHEDrine Sulfate 50 mg/mL Inj IVPUSH PRN (07:40)
[2016-07-16] MEDS ORDERED: Lactated Ringer's 1,000 ML IV SCH (07:40)
[2016-07-16] MEDS ORDERED: Dexamethasone 4 mg/mL Inj IV ONE (07:40)
[2016-07-16] MEDS ORDERED: MetoCLOpramide 5 mg/mL 2 mL Inj IVPUSH PRN (07:40)
[2016-07-16] MEDS ORDERED: HYDROmorphone 1 mg/mL Inj IVPUSH PRN (07:40)
[2016-07-16] MEDS ORDERED: Dexamethasone 4 mg/mL Inj IVPUSH PRN (07:40)
[2016-07-16] MEDS ORDERED: Dexamethasone 4 mg/mL Inj INTRARTICU ONE (07:40)
[2016-07-16] MEDS ORDERED: Ondansetron 2 mg/mL 2 mL Inj IVPUSH PRN (07:40)
[2016-07-16] MEDS ORDERED: Lactated Ringer's 500 ML IV PRN (07:40)
[2016-07-16] MEDS ORDERED: fentaNYL-PF 50 mCg/mL 2 mL Inj IVPUSH PRN (07:40)
--- NOTE | 2016-07-16 07:56 | PCM.ANEP2 ---
Post Anesthesia Evaluation ASA/CMS Post Anesthesia VS in Patient's Normal Range?: Yes Resp Stable; Airway Patent?: Yes CV Function & Hydration Stable: Yes Mental Status Recovered?: Yes Pain control Satisfactory?: Yes N/V Control Satisfactory?: Yes Edmond Matthews MD Jul 16, 2016 07:56
--- NOTE | 2016-07-16 07:56 | PCM.ANEP1 ---
Post Anesthesia Phase 1 PACU Phase 1 Assessment Vital Signs see anesthesia record Vital Signs Date Time Temp Pulse Resp B/P Pulse Ox O2 Delivery O2 Flow Rate FiO2 07/16/16 06:34 35.5 76 18 177/90 96 Room Air Anesthetic Administered: GA Level of Alertness: Awake, talking ALEX's with Equal Strength: Yes Pain: No Nausea or Vomiting: No Oxygen Delivery: Nasal Cannula Lungs: Normal Air Movement Dermatome Level: Full Sensation Edmond Matthews MD Jul 16, 2016 07:56
--- NOTE | 2016-07-16 16:29 | OP ---
[address] [address] OPERATIVE REPORT PATIENT: LUCÍA DANIELS : 1945 MR#: [id number] ADMIT: 07/16/2016 JOB ID: [id number] DATE OF SURGERY: PREOPERATIVE DIAGNOSIS(ES): Arthrofibrosis two months status post right total knee. POSTOPERATIVE DIAGNOSIS(ES): Arthrofibrosis two months status post right total knee. PROCEDURE: 1. Right knee manipulation. 2. Right knee injection. SURGEON: Obed Ba MD. CREDIT ASSOCIATE: None. COMPLICATIONS: None. INDICATIONS: This gentleman had an uneventful right total knee. He, however, has failed to achieve range of motion and has less than 90 degrees flexion at this point in time. A decision was made to proceed with manipulation and intra-articular injection. He understands the potential for risks and complication and wishes to proceed. PROCEDURE: The patient was given a general anesthetic. Knee was examined. A three-degree flexion contracture with 90-degree passive drop was noted. With progressive applied pressure, extensive crepitation was noted with progressive manipulation of the knee. An excellent result was achieved with a passive drop of 110 degrees achieved and 120 with light pressure. The knee was then injected through an anteromedial site using strict aseptic technique, and the patient was taken to the recovery room in stable condition. He tolerated the procedure well.
== END 2016-07-16 23:59 | disposition home or self-care (01) ==
LOC: SAS 05:48
PROVIDERS: ATTEND Orthopaedic Surgery
DX: M24.661 Ankylosis, right knee (principal); I10 Essential (primary) hypertension; J45.909 Unspecified asthma, uncomplicated; Z87.891 Personal history of nicotine dependence; Z96.651 Presence of right artificial knee joint; Z79.51 Long term (current) use of inhaled steroids